=== PATIENT | male | born 1990 | race Caucasian/White ===

== ENCOUNTER 2017-10-08 12:36 | Emergency (ER) | payer OTHER ==
[2017-10-08] MEDS ORDERED: TETANUS & DIPHTHERIA TOX,ADULT 0.5 ML VIAL ONE (14:43)
[2017-10-08] MEDS ORDERED: LIDOCAINE 2% W/EPI 1:200,000 MPF 20 ML VIAL IM ONE (15:05)
--- NOTE | 2017-10-08 15:09 | RAD REPORT ---
EXAM DESCRIPTION: RAD - Hand Right 3 View - 10/08/2017 3:02 pm CLINICAL HISTORY: Laceration COMPARISON: None. FINDINGS: Soft tissue laceration is noted in the thenar region. No fracture, dislocation or radiopaq ue foreign body.
--- NOTE | 2017-10-08 15:31 | EDPHYS ---
Physician Documentation [facility] Name: Tutu Moore Age: 27 yrs Sex: Male : 1990 Arrival Date: 10/08/2017 Time: 12:38 Bed 24 Private MD: ED Physician Naga Lockwood HPI: 10/08 14:00 This 27 yrs old Male presents to ER via Ambulatory with complaints of cp Laceration To Hand. Historical: - Allergies: 13:08 No Known Allergies; hb - Home Meds: 13:08 None [Active]; hb - PMHx: 13:08 None; hb - PSHx: 13:08 None; hb - Immunization history:: Last tetanus immunization: > 10 years ago. - Social history:: Smoking status: Patient/guardian denies using tobacco. - Ebola Screening: : No symptoms or risks identified at this time. ROS: 14:05 Constitutional: Negative for body aches, chills, fever, poor PO intake. cp 14:05 Eyes: Negative for injury, pain, redness, and discharge. cp 14:05 ENT: Negative for drainage from ear(s), ear pain, sore throat, difficulty swallowing, difficulty handling secretions. 14:05 Cardiovascular: Negative for chest pain, palpitations. 14:05 Respiratory: Negative for cough, shortness of breath, wheezing. 14:05 Abdomen/GI: Negative for abdominal pain, nausea, vomiting, and diarrhea. 14:05 Skin: Positive for laceration(s), of the dorsal side web space between right thumb and index fingers, Negative for cellulitis, rash. 14:05 Neuro: Negative for numbness, tingling, weakness. 14:05 All other systems are negative. Exam: 14:12 Constitutional: The patient appears in no acute distress, alert, awake, non-toxic, well cp developed, well nourished. 14:12 Head/Face: Normocephalic, atraumatic. cp 14:12 Eyes: Periorbital structures: appear normal, Conjunctiva: Lids and lashes: appear normal, bilaterally. 14:12 ENT: External ear(s): are unremarkable, Nose: is normal, Mouth: is normal, Posterior pharynx: is normal, airway is patent. 14:12 Neck: ROM/movement: is normal, is supple, without pain, no range of motions limitations, no nuchal rigidity. 14:12 Chest/axilla: Inspection: normal. 14:12 Cardiovascular: Rate: normal, Rhythm: regular. 14:12 Respiratory: the patient does not display signs of respiratory distress, Respirations: normal, no use of accessory muscles, no retractions, no splinting, no tachypnea. 14:12 Abdomen/GI: Exam negative for discomfort, distension, guarding, Inspection: abdomen appears normal. 14:12 Back: pain, is absent, ROM is normal. 14:12 Skin: injury, laceration(s), the wound is approximately 3 cm(s), of the dorsal web space between right thumb and index finger, that can be described as clean, no foreign body, linear, with mild bleeding. Vital Signs: 13:07 BP 138 / 96; Pulse 81; Resp 16; Temp 97.9; Pulse Ox 98% on R/A; Weight 81.65 kg; Height hb 5 ft. 11 in. (180.34 cm); Pain 7/10; 15:30 BP 130 / 84; Pulse 80; Resp 16; Pulse Ox 99% on R/A; kr2 13:07 Body Mass Index 25.10 (81.65 kg, 180.34 cm) hb Laceration: 15:27 Wound Repair of 3cm ( 1.2in ) subcutaneous laceration to dorsal side web space of right cp thumb and index fingers. Linear shaped.. Distal neuro/vascular/tendon intact. Anesthesia: Wound infiltrated with 4 mls of 2% lidocaine. Wound prep: Moderate cleansing with hibiclenz by me, Wound irrigation by me, Wound explored moderately. Skin closed with 5 4-0 Prolene using simple sutures and sterile technique. Dressed with Bacitracin, non-adherent dressing. Patient tolerated well. MDM: 13:30 Patient medically screened. [facility] 15:28 Data reviewed: vital signs, nurses notes, radiologic studies, plain films. 10/08 14:04 Order name: XRAY Hand RIGHT 3 View; Complete Time: 15:26 10/08 15:26 Interpretation: Report reviewed. 10/08 14:04 Order name: Wound Care: wound irrigation; Complete Time: 14:23 10/08 15:27 Order name: Wound dressing; Complete Time: 15:32 cp Administered Medications: 14:44 Drug: Tetanus-Diphtheria Toxoid Adult 0.5 ml {Contact Center Specialist: ipsy. Exp: kr2 12/30/2019. Lot #: [id number]. } Route: IM; Site: right deltoid; 15:32 Follow up: Response: No adverse reaction kr2 Disposition: 10/08/17 15:31 Discharged to Home. Impression: Laceration without foreign body of right hand. - Condition is Stable. - Discharge Instructions: Laceration Care, Adult. - Prescriptions for Doxycycline Monohydrate 100 mg Oral Tablet - take 1 tablet by ORAL route every 12 hours for 10 days; 20 tablet. - Medication Reconciliation Form, Thank You Letter, Antibiotic Education, Prescription Opioid Use form. - Follow up: Private Physician; When: 7 - 10 days; Reason: Staple/Suture removal. - Problem is new. - Symptoms have improved. Addendum: 10/10/2017 09:01 Co-signature as Attending Physician, Naga Lockwood MD I agree with the assessment and c reed plan of care. Signatures: Dispatcher [employer] EDSC Naga Lockwood MD MD cha Page, Corey, PA PA cp Lilly Marinelli, KAMRAN ANDREW Daniela Taylor RN RN kr2 Corrections: (The following items were deleted from the chart) 10/08 15:45 15:31 10/08/2017 15:31 Discharged to Home. Impression: Laceration without foreign body kr2 of right hand. Condition is Stable. Forms are Medication Reconciliation Form, Thank You Letter, Antibiotic Education, Prescription Opioid Use. Follow up: Private Physician; When: 7 - 10 days; Reason: Staple/Suture removal. Problem is new. Symptoms have improved. cp
--- NOTE | 2017-10-08 15:31 | ER ---
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 Transition of care: patient was not received from another setting of care. Onset of symptoms was October 08, 2017. Risk Assessment: Do you want to hurt yourself or someone else? Patient reports no desire to harm self or others. Care prior to arrival: None. 13:03 Method Of Arrival: Ambulatory hb 13:03 Acuity: VALENTIN 3 hb 13:37 Complicating Factors: There are no complicating factors for this patient. Initial kr2 Sepsis Screen: Does the patient meet any 2 criteria? No. Patient's initial sepsis screen is negative. Does the patient have a suspected source of infection?. Triage Assessment: 13:37 General: Appears in no apparent distress. uncomfortable, well groomed, well developed, kr2 well nourished, Behavior is calm, cooperative, appropriate for age. Injury Description: Laceration sustained to right hand. Historical: - Allergies: 13:08 No Known Allergies; hb - Home Meds: 13:08 None [Active]; hb - PMHx: 13:08 None; hb - PSHx: 13:08 None; hb - Immunization history:: Last tetanus immunization: > 10 years ago. - Social history:: Smoking status: Patient/guardian denies using tobacco. - Ebola Screening: : No symptoms or risks identified at this time. Screenin:36 Abuse screen: Denies threats or abuse. Denies injuries from another. Nutritional kr2 screening: No deficits noted. Tuberculosis screening: No symptoms or risk factors identified. Fall Risk None identified. Assessment: 13:33 Pain: Complains of pain in right hand Pain does not radiate. Pain currently is 8 out of kr2 10 on a pain scale. Quality of pain is described as sharp, Is continuous, Alleviated by rest, Aggravated by increased activity, touch. Neuro: Level of Consciousness is awake, alert, obeys commands, Oriented to person, place, time, situation, Appropriate for age Intact. Cardiovascular: Capillary refill < 3 seconds in bilateral fingers Patient's skin is warm and dry. Respiratory: Airway is patent Respiratory effort is even, unlabored, Respiratory pattern is regular, symmetrical. GI: Abdomen is flat, non-distended. : No signs and/or symptoms were reported regarding the genitourinary system. EENT: Oral mucosa is moist. Derm: Skin is healthy with good turgor, Skin is pink, warm \T\ dry. Musculoskeletal: Circulation, motion, and sensation intact. Injury Description: Laceration is 0.5 to 2.5 cm long, is bleeding moderately. 14:35 Reassessment: Patient appears in no apparent distress at this time. Patient and/or kr2 family updated on plan of care and expected duration. Pain level reassessed. Patient is alert, oriented x 3, equal unlabored respirations, skin warm/dry/pink. Patient stated he does not want anything for pain at this time. Wound irrigated with normal saline, patient tolerated well. 15:44 Reassessment: Patient appears in no apparent distress at this time. Patient and/or kr2 family updated on plan of care and expected duration. Pain level reassessed. Patient is alert, oriented x 3, equal unlabored respirations, skin warm/dry/pink. Antibiotic ointment applied, covered with non-stick dressing, wrapped with gauze and secured with tape. Patient denies pain at this time. Vital Signs: 13:07 BP 138 / 96; Pulse 81; Resp 16; Temp 97.9; Pulse Ox 98% on R/A; Weight 81.65 kg; Height hb 5 ft. 11 in. (180.34 cm); Pain 7/10; 15:30 BP 130 / 84; Pulse 80; Resp 16; Pulse Ox 99% on R/A; kr2 13:07 Body Mass Index 25.10 (81.65 kg, 180.34 cm) hb ED Course: 12:38 Patient arrived in ED. rg4 13:07 Triage completed. hb 13:08 Arm band placed on right wrist. hb 13:12 Daniela Taylor, KAMRAN is Primary Nurse. kr2 13:26 Naga Adame PA is PHCP. cp 13:26 Naga Lockwodo MD is Attending Physician. cp 13:38 Patient has correct armband on for positive identification. Bed in low position. Call kr2 light in reach. Side rails up X 1. Pulse ox on. NIBP on. Door closed. Warm blanket given. Head of bed elevated. 15:02 XRAY Hand RIGHT 3 View In Process Unspecified. EDMS 15:43 No provider procedures requiring assistance completed. Patient did not have IV access kr2 during this emergency room visit. Administered Medications: 14:44 Drug: Tetanus-Diphtheria Toxoid Adult 0.5 ml {Breeding Technician: Cazoodle. Exp: kr2 12/30/2019. Lot #: [id number]. } Route: IM; Site: right deltoid; 15:32 Follow up: Response: No adverse reaction kr2 Outcome: 15:31 Discharge ordered by . cherise 15:43 Discharged to home ambulatory, with family. kr2 15:43 Condition: good 15:43 Discharge instructions given to patient, family, Instructed on discharge instructions, follow up and referral plans. medication usage, wound care, Demonstrated understanding of instructions, follow-up care, medications, wound care, Prescriptions given X 1. 15:45 Patient left the ED. kr2 Signatures: Dispatcher [employer] EDMS Naga Adame PA PA cp Baxter, Heather, RN RN Lucy Rivera rg4 Daniela Taylor, RN RN kr2
== END 2017-10-08 15:45 | disposition home or self-care (01) ==
LOC: ER 12:36
PROC: 0HQFXZZ Repair Right Hand Skin, External Approach (ICD-10-PCS; principal; 2017-10-08)
DX: S61.411A Laceration without foreign body of right hand, initial encounter (principal); X58.XXXA Exposure to other specified factors, initial encounter; Y93.9 Activity, unspecified; Y92.9 Unspecified place or not applicable; Y99.9 Unspecified external cause status; Z23 Encounter for immunization
CPT/HCPCS: 90714; 99284